=== PATIENT | male | born 1970 | race Caucasian/White ===

== ENCOUNTER 2020-02-06 18:25 | Observation (INO) ==
[2020-02-06] MEDS ORDERED: IOPAMIDOL 100 ML BOTTLE IV ONE (18:26)
[2020-02-06] MEDS ORDERED: ACETAMINOPHEN 325 MG TABLET PO ONE (19:00)
[2020-02-06] MEDS ORDERED: 0.9 % SODIUM CHLORIDE 1,000 ML IV ONE (19:00)
[2020-02-06] MEDS ORDERED: PANTOPRAZOLE 40 MG VIAL IV ONE (19:01)
--- NOTE | 2020-02-06 19:05 | Emergency Department Note ---
General Adult HPI - General Chief complaint: Back Pain/Injury Stated complaint: back, body, and head ache Time Seen by Provider: 02/06/20 18:32 Source: patient Mode of arrival: ambulatory Limitations: no limitations - History of Present Illness HPI Narrative: 50-year-old male patient presents emergency department with a considerable constellation of symptoms. Patient admits to a unproductive cough, mild sinus congestion, and right-sided epistaxis x2 weeks. Over the last 4 days he has developed considerable myalgias worse to his mid back extending up into his shoulders and neck. He also complains of considerable pain to bilateral knees. He admits to "cold feet and hands". He also admits to headache. Over the last 2 days he has been experiencing the passing of bright red blood per rectum. He denies producing any stools during this time. He admits to fever starting today. He denies considerable shortness of breath. He does mention that the pain to his back "takes my breath away". He denies retrosternal chest pain or palpitations. He denies considerable abdominal pain, nausea, vomiting, or diarrhea. He denies any hematuria or dysuria. He denies positive sick contacts at home with similar symptoms. Patient has a past history of back pain. He and the family deny history of hypertension, diabetes, or dyslipidemia. - Related Data Allergies Allergy/AdvReac Type Severity Reaction Status Date / Time hydrocodone Allergy Intermediate Anaphylaxis Verified 02/06/20 18:35 Review of Systems All systems ED: reviewed and negative except as stated. Past Medical History - Social History smoking status: Never smoker Physical Exam Limitations: no limitations General appearance: alert, anxious, grimacing, in distress, other (Well- developed, well-nourished 50-year-old male patient laying semi-recumbent on the emergency room gurney in obvious discomfort. He cries out in pain with any type of movement. He is in no acute respiratory distress) Head: atraumatic, normocephalic Eye: Present: normal appearance, PERRL, EOMI. Absent: scleral icterus, conjunctival injection ENT: Present: normal oropharynx, mucous membranes dry. Absent: nasal congestion (No area of nasal bleeding was identified.) Neck: Present: normal inspection, full ROM, trachea midline. Absent: tenderness, meningismus, lymphadenopathy Chest: Present: symmetric chest wall rise Respiratory: Present: normal lung sounds bilaterally. Absent: respiratory distress, wheezes, stridor, accessory muscle use, prolonged expiratory phase Cardiovascular: Present: normal rhythm, tachycardia. Absent: systolic murmur, diastolic murmur Abdominal: Present: soft, tenderness, guarding, rebound, hyperactive bowel sounds, psoas sign, tenderness at [place]. Absent: distention, rigidity, organomegaly, obturator sign, heel tap sign, ascites, mass, pulsatile mass Abdominal tenderness: Present: RLQ, severe. Absent: heel tap pain, right femur ext pain Rectal: Present: normal rectal tone, heme (+) stool, tenderness, normal prostate, other (Patient experienced moderate amount of bright red blood after JAIRO. No active hemorrhage was identified during exam. This resolved after wiping himself.). Absent: normal inspection, black stool, bloody stool, fecal impaction, mass Extremities: Present: normal inspection, full ROM, tenderness, normal capillary refill Back: Present: normal inspection, tenderness (Exquisite tenderness palpation noted to the thoracic spine at the T11-T12 and L1-L2), L-S tenderness, paraspinal tenderness. 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 Absent: normal gait (Patient needed considerable assistance to exit his be brought into the emergency department), reflexes normal Psychiatric: Present: agitated, anxious, other (Patient is very histrionic during exam.) Skin: Present: warm, dry. Absent: rash Course Course Narrative: Patient was brought into the emergency department and a history and physical exam was performed. Saline lock was established and laboratory studies were d rawn. Portable chest x-ray was ordered and reviewed. Abdominal CT scan with contrast was ordered and reviewed. Patient was given normal saline 1000 mL a bolus. He expresses considerable pain but due to his rectal bleeding no Toradol was given. He was given Dilaudid 0.5 mg IVP. Due to the GI bleed patient was given Protonix 80 mg IVP. Upon reevaluation patient is resting on the emergency room gurney. A review of his laboratory studies show the following: CBC within normal limits. CMP CO2 21, total bilirubin 1.3, all others normal limits. C- reactive protein 0.6. ESR 9. Lactic acid 1.2. Chest x-ray showing no acute pulmonary infiltrate. CT scan was read by the radiologist as a soft tissue mass to the right lower quadrant at the ileocecal junction. Radiologist did recommend colonoscopy and biopsy to confirm diagnosis. After reviewing all this data I discussed the findings with the patient and his family. At this time he is acutely ill, febrile, with myalgias, and a new found soft tissue mass in his abdomen. With this in mind I reached out to our general surgeon (Dr. Jerome) I discussed the case with him. At this time Dr. eJrome has requested that the patient be admitted to the hospital for inpatient care. He requested that I put holding orders in place and that he would follow the patient in the morning. With this in mind, holding orders were placed as requested. All further treatment decisions, modalities, and ultimate patient disposition will be carried out by Dr. Jerome. Vital Signs Temperature 100 F H 02/06/20 18:26 Pulse Rate 99 H 02/06/20 18:26 Respiratory Rate 22 02/06/20 18:26 Blood Pressure 126/90 02/06/20 18:26 Pulse Oximetry (%) 99 02/06/20 18:26 Temperature 99.4 F H 02/06/20 20:20 Pulse Rate 94 H 02/06/20 20:33 Respiratory Rate 13 02/06/20 20:33 Blood Pressure 106/73 02/06/20 20:31 Pulse Oximetry (%) 92 02/06/20 20:33 Medical Decision Making - Lab Data Lab results reviewed: Yes I reviewed the patient's lab results. Result diagrams: 02/06/20 19:12 02/06/20 19:12 Lab Results 02/06/20 02/06/20 02/06/20 Range/Units 19:12 19:12 19:12 WBC 8.2 (4.50-11.00) K/mcL RBC 5.05 (4.63-6.08) M/mcL Hgb 15.5 (13.7-17.5) g/dL Hct 45.2 (40.1-51.0) % POC Hct 46.0 (41.0-55.0) % MCV 89.5 (80.0-100.0) fL MCH 30.7 (26.0-34.0) pg MCHC 34.3 (31.0-36.0) g/dL RDW 12.3 (11.5-14.5) % Plt Count 244 (140-440) K/mcL MPV 10.0 (7.4-10.4) fL Gran % 82.0 H (38.0-78.0) % Lymph % (Auto) 5.6 L (15.5-49.0) % [place] % (Auto) 11.8 (1.0-12.0) % Eos % (Auto) 0.2 (0.0-7.0) % Baso % (Auto) 0.4 (0.0-2.0) % Gran # 6.68 (1.80-8.00) K/mcL Lymph # (Auto) 0.46 L (1.50-4.80) K/mcL [place] # (Auto) 0.96 H (0.10-0.90) K/mcL Eos # (Auto) 0.02 (0.00-0.70) K/mcL Baso # (Auto) 0.03 (0.00-0.30) K/mcL ESR 9 (0-15) mm/hr VBG Lactic Acid 1.2 (0.5-2.0) mmol/L POC Sodium 136 (133-145) mmol/L Sodium 135 (133-145) mmol/L POC Potassium 3.4 (3.3-5.1) mmol/L Potassium 3.5 (3.3-5.1) mmol/L POC Chloride 106 (96-108) mmol/L Chloride 102 (96-108) mmol/L Carbon Dioxide 21 L (22-30) mmol/L POC Total CO2 21 L (22-30) mmol/L Anion Gap 12.0 (8-16) POC BUN 11 (6-20) mg/dl BUN 11 (6-20) mg/dl Creatinine 0.9 (0.7-1.2) mg/dl POC Creatinine 1.0 (0.7-1.2) mg/dl GFR Calculation 99 Glucose 105 (70-105) mg/dL POC Glucose 105 (70-105) mg/dL Calcium 8.9 (8.6-10.4) mg/dl POC WB Ioniz Calcium 1.00 L (1.16-1.32) mmol/L Total Bilirubin 1.3 H (0.0-1.0) mg/dL AST 24 (0-37) U/l ALT 21 (0-40) U/l Alkaline Phosphatase 57 (39-117) U/L C-Reactive Protein 0.6 (0.0-0.8) mg/dl Total Protein 7.5 (5.9-8.4) gm/dL Albumin 4.4 (3.2-5.2) gm/dL Globulin 3.1 (2.2-3.7) gm/dL Albumin/Globulin Ratio 1.4 (1.0-2.3) - Radiology Data Radiology results reviewed: Yes I reviewed the patient's radiology results. Disposition Pt seen by SERVICE LOSS CONTROL CONSULTANT/PA only: Yes Clinical Impression: Abdominal mass, RLQ (right lower quadrant), Febrile illness, acute, Bleeding per rectum Disposition: Xfer As Outpt/Obs ([facility]) Condition: Fair Additional Instructions: Patient is going to be admitted to the hospital under the care of the general surgeon (Dr. Jerome). All further treatment decisions, modalities, and ultimate patient disposition will be carried out by Dr. Jerome. Referrals: Steven Spaulding MD [Primary Care Provider] -
[2020-02-06 19:24] LABS: POC Blood Urea Nitrogen 11 mg/dl (6-20); POC CO2 21 mmol/L (22-30); POC Chloride 106 mmol/L (96-108); POC Glucose, Random 105 mg/dL (70-105); POC Potassium 3.4 mmol/L (3.3-5.1); POC Sodium 136 mmol/L (133-145)
[2020-02-06] MEDS: HYDROmorphone 2 MG/ML VIAL IV PRN ×3 (19:34→21:24)
[2020-02-06 19:41] LABS: Basophils # (Auto) 0.03 K/mcL (0.00-0.30); Basophils % (Auto) 0.4 % (0.0-2.0); Eosinophils # (Auto) 0.02 K/mcL (0.00-0.70); Eosinophils % (Auto) 0.2 % (0.0-7.0); Hematocrit 45.2 % (40.1-51.0); Hemoglobin 15.5 g/dL (13.7-17.5); Lymphocytes # (Auto) 0.46 K/mcL (1.50-4.80); Lymphocytes % (Auto) 5.6 % (15.5-49.0); Mean Cell Volume 89.5 fL (80.0-100.0); Mean Corpuscular HGB Conc 34.3 g/dL (31.0-36.0); Monocytes # (Auto) 0.96 K/mcL (0.10-0.90); Monocytes % (Auto) 11.8 % (1.0-12.0); Platelet Count 244 K/mcL (140-440); RBC 5.05 M/mcL (4.63-6.08); Red Cell Distribution Width 12.3 % (11.5-14.5); WBC 8.2 K/mcL (4.50-11.00)
[2020-02-06 20:05] LABS: ALT/SGPT 21 U/l (0-40); AST/SGOT 24 U/l (0-37); Albumin 4.4 gm/dL (3.2-5.2); Albumin/Globulin Ratio 1.4 (1.0-2.3); Alkaline Phosphatase 57 U/L (39-117); Bilirubin,Total 1.3 mg/dL (0.0-1.0); Blood Urea Nitrogen 11 mg/dl (6-20); C-Reactive Protein 0.6 mg/dl (0.0-0.8); Calcium 8.9 mg/dl (8.6-10.4); Carbon Dioxide 21 mmol/L (22-30); Chloride 102 mmol/L (96-108); Globulin 3.1 gm/dL (2.2-3.7); Glomerular Filtration Rate 99; Glucose 105 mg/dL (70-105)
[2020-02-06 20:34] LABS: Erythrocyte Sedimentation Rate 9 mm/hr (0-15)
[2020-02-06] MEDS ORDERED: HYDROmorphone 2 MG/ML VIAL IV PRN (22:02)
[2020-02-06] MEDS ORDERED: ONDANSETRON 4 MG/2 ML VIAL IV PRN (22:02)
[2020-02-06] MEDS: 0.9 % SODIUM CHLORIDE 1,000 ML IV SCH (22:27)
[2020-02-07] MEDS: HYDROmorphone 2 MG/ML VIAL IV PRN (00:27)
[2020-02-07] MEDS ORDERED: ACETAMINOPHEN 1,000 MG/100 ML BOTTLE IV ONE (01:36)
[2020-02-07 06:22] LABS: Basophils # (Auto) 0.03 K/mcL (0.00-0.30); Basophils % (Auto) 0.4 % (0.0-2.0); Eosinophils # (Auto) 0.02 K/mcL (0.00-0.70); Eosinophils % (Auto) 0.3 % (0.0-7.0); Granulocytes % (Auto) 81.1 % (38.0-78.0); Hematocrit 41.5 % (40.1-51.0); Hemoglobin 13.6 g/dL (13.7-17.5); Lymphocytes # (Auto) 0.46 K/mcL (1.50-4.80); Lymphocytes % (Auto) 6.6 % (15.5-49.0); Mean Cell Volume 92.8 fL (80.0-100.0); Mean Corpuscular HGB Conc 32.8 g/dL (31.0-36.0); Monocytes # (Auto) 0.81 K/mcL (0.10-0.90); Monocytes % (Auto) 11.6 % (1.0-12.0); Platelet Count 200 K/mcL (140-440); RBC 4.47 M/mcL (4.63-6.08); Red Cell Distribution Width 12.5 % (11.5-14.5)
[2020-02-07] MEDS: 0.9 % SODIUM CHLORIDE 10 ML SYRINGE IV SCH ×3 (06:22→21:01)
[2020-02-07 06:40] LABS: ALT/SGPT 17 U/l (0-40); AST/SGOT 19 U/l (0-37); Albumin 3.7 gm/dL (3.2-5.2); Albumin/Globulin Ratio 1.4 (1.0-2.3); Alkaline Phosphatase 50 U/L (39-117); Bilirubin,Direct 0.2 mg/dL (0.0-0.3); Bilirubin,Total 1.3 mg/dL (0.0-1.0); Blood Urea Nitrogen 8 mg/dl (6-20); Carbon Dioxide 26 mmol/L (22-30); Chloride 103 mmol/L (96-108); Globulin 2.6 gm/dL (2.2-3.7); Glomerular Filtration Rate 99; Glucose 125 mg/dL (70-105); Lactate Dehydrogenase 174 U/L (94-250); Phosphorous 2.7 mg/dL (2.7-4.5); Triglycerides 110 mg/dl (<150); Uric Acid 4.2 mg/dL (2.5-8.0)
[2020-02-07] MEDS: 0.9 % SODIUM CHLORIDE 1,000 ML IV SCH ×3 (08:06→23:27)
--- NOTE | 2020-02-07 09:07 | XRay Report ---
HISTORY: Fever, cough, myalgias FINDINGS: The lungs are clear and well expanded. The heart size, pulmonary vascular, mediastinum, michelle, pleura and bones are normal. There is a mild dextroscoliotic curvature in the lower thoracic spine. IMPRESSION: Normal exam Interpreted and Authenticated by: Doc Cramer 02/07/20
--- NOTE | 2020-02-07 09:17 | Cat Scan Report ---
History: Right lower quadrant pain, blood in stool, fever TECHNIQUE: The patient was imaged following intravenous and no oral contrast from the diaphragm to the symphysis pubis. Sagittal and coronal reformats were created. The radiation exposure was limited using dose reduction technology. FINDINGS: The lung bases are clear and there is no pleural effusion. The liver and spleen are normal in size and homogeneous. The pancreas is normal without evidence of pancreatitis. The gallbladder and bile ducts are normal. The adrenals are normal and symmetric. A 9 mm cortical cyst is present posteriorly in the middle third of the right kidney. There is no renal mass, calculus, hydronephrosis or evidence of pyelonephritis. The ureters are decompressed. Urinary bladder is unopacified but appears normal. The aorta and inferior vena cava are normal. No abscess, adenopathy or ascites are present within the abdomen or pelvis. Within the lumen of the cecum adjacent to the ileocecal valve there is a heterogeneous solid mass measuring 3.0 x 3.7 x 5.1 cm. This contains a couple small bubbles of air. The adjacent terminal ileum is normal without evidence of inflammation or an intussusception. Multiple fluid-filled loops of small bowel are present within the abdomen and pelvis, which measure up to 2.9 cm in diameter. The wall of the cecum does not appear to be abnormally thickened and there is a moderate amount stool in the colon. Segments of the transverse and descending colon are decompressed and the aranda are upper limits of normal thickness and appear to have some fatty infiltration within the wall. This finding may be seen with chronic inflammatory bowel disease. There are a few noninflamed diverticula in the sigmoid colon. There is no acute diverticulitis. IMPRESSION: Mass in the cecum adjacent to the ileocecal valve. This could be a stool ball, but it has a different composition than the remainder the stool seen throughout the colon. Neoplasm should be considered. This could be further evaluated by colonoscopy. Borderline dilatation of small intestine. This could be due to early obstruction due to the mass at the ileocecal valve. Mild fatty infiltration and borderline thickening of the wall of the transverse and descending colon. This could be normal collapsed mucosal folds or secondary findings from chronic low-grade inflammatory bowel disease Damon Dodson was called with results Interpreted and Authenticated by: Doc Cramer 02/07/20
[2020-02-07] MEDS ORDERED: PEG 3350/NA SULF,BICARB,CL/KCL 4,000 ML ORAL.SOL PO ONE (14:06)
--- NOTE | 2020-02-07 15:56 | General Surg History&Physical ---
History of Present Illness Patient information: Note initiated : 02/07/20 at 3:54 pm Service Date, if different from initiated Date: [] Patient: Bruce Hickey 50 y/o M admitted on 02/07/20 for back, body, and head ache. Chief Complaint: [] HPI: Mr. Hickey is a 50 year old M admitted for evaluation of bright red rectal b leeding with a cecal mass. The patient has a 2 week history of diffuse aches, joints and back. 2 days ago he developed severe low back pain and abdominal pain. He had bright red rectal bleeding 4. He is seen in the emergency room and admitted. CT of the abdomen shows a 5.1 x 3.7 x 3 cm right cecal mass. Hemoglobin has decreased from 15.5 on admission to the ER to 13.6 this morning. He's not had bloody bowel movement since admission. His lactic acid was 1.2. Review of Systems All systems PM: reviewed and no additional remarkable complaints except as stated - EENT Nose, mouth and throat: epistaxis (episodic right-sided epistaxis) - Musculoskeletal other (right knee pain) Past History Past medical history: No chronic medical illness Past surgical history: Right knee ACL repair and right knee arthroscopy. Left inguinal hernia repair age 50 Past family history: Denies tobacco use. Drinks beer daily. Denies drug use. Employment Past social history: Mother alive age 73 with hypertension Father age 81 due to myocardial infarction. Brother age 51 with hypertension Medications and Allergies Home Medications Medication Instructions Recorded Confirmed Type No Known Home Meds 02/07/20 02/07/20 History Allergies Allergy/AdvReac Type Severity Reaction Status Date / Time hydrocodone Allergy Severe Anaphylaxis Verified 02/07/20 09:40 Exam Temp Pulse Resp BP Pulse Ox 98.1 F 66 16 114/77 97 02/07/20 12:00 02/07/20 12:00 02/07/20 12:00 02/07/20 12:00 02/07/20 12:00 - General physical appearance well developed, well nourished, no distress - Eyes PERRL, normal ocular movement - ENT normal pinna, normal nares, normal mucosa, no hearing loss, no congestion - Head Head exam IM: Present: atraumatic, normocephalic - Neck no masses, no bruits, trachea midline, no lymphadenopathy, no venous distension - Cardiovascular Cardiovascular exam IM: Present: normal rate and rhythm - Respiratory normal expansion, normal respiratory effort, clear to percussion, clear to auscultation - Abdomen Abdomen: Present: soft, tender (mild tenderness with guarding right lower quadrant), bowel sounds, guarding Hernia: Present: none - Genitourinary Present: normal penis with no external lesions - Rectum Rectum: Present: normal sphincter tone, no hemorrhoids, no tenderness, no masses, no bleeding - Integumentary Present: no rash, no growths, no abnormal pigmentation - Neurologic Present: normal coordination, normal sensation - Musculoskeletal Present: normal gait, normal posture - Psychiatric Present: oriented to time, oriented to person, oriented to place, speech is normal, memory intact Assessment and Plan (1) Rectal bleeding GoLYTELY 4 L today. Soapsuds enema in the morning. Colonoscopy tomorrow Status: Acute (2) Mass of cecum CEA. Colonoscopy. Diagnosis Status: Acute
[2020-02-07 17:17] LABS: Prothrombin Time 13.2 sec (11.9-14.5)
[2020-02-07 17:39] LABS: Carcinoembryonic Antigen 0.6 ng/mL (0.0-3.4)
[2020-02-07] MEDS ORDERED: ACETAMINOPHEN 1,000 MG/100 ML BOTTLE IV PRN (20:18)
[2020-02-07] MEDS: ACETAMINOPHEN 325 MG TABLET PO PRN (21:01)
[2020-02-08] MEDS: ACETAMINOPHEN 325 MG TABLET PO PRN (05:09)
[2020-02-08] MEDS: 0.9 % SODIUM CHLORIDE 10 ML SYRINGE IV SCH ×2 (06:16→16:21)
[2020-02-08] MEDS: 0.9 % SODIUM CHLORIDE 1,000 ML IV SCH ×2 (07:50→16:20)
[2020-02-08 08:10] LABS: ALT/SGPT 20 U/l (0-40); AST/SGOT 23 U/l (0-37); Albumin 3.5 gm/dL (3.2-5.2); Albumin/Globulin Ratio 1.5 (1.0-2.3); Alkaline Phosphatase 46 U/L (39-117); Blood Urea Nitrogen 6 mg/dl (6-20); Calcium 7.9 mg/dl (8.6-10.4); Carbon Dioxide 25 mmol/L (22-30); Chloride 102 mmol/L (96-108); Globulin 2.4 gm/dL (2.2-3.7); Glomerular Filtration Rate 99; Glucose 87 mg/dL (70-105); Lactate Dehydrogenase 183 U/L (94-250); Triglycerides 88 mg/dl (<150); Uric Acid 3.9 mg/dL (2.5-8.0)
[2020-02-08 08:17] LABS: Bilirubin,Direct < 0.2 mg/dL (0.0-0.3); Phosphorous 2.3 mg/dL (2.7-4.5)
[2020-02-08 08:58] LABS: Basophils # (Auto) 0.03 K/mcL (0.00-0.30); Basophils % (Auto) 0.7 % (0.0-2.0); Eosinophils # (Auto) 0.05 K/mcL (0.00-0.70); Eosinophils % (Auto) 1.2 % (0.0-7.0); Granulocytes % (Auto) 61.7 % (38.0-78.0); Hematocrit 39.9 % (40.1-51.0); Lymphocytes # (Auto) 0.74 K/mcL (1.50-4.80); Lymphocytes % (Auto) 17.7 % (15.5-49.0); Mean Cell Volume 93.2 fL (80.0-100.0); Mean Corpuscular HGB Conc 32.6 g/dL (31.0-36.0); Mean Platelet Volume 10.4 fL (7.4-10.4); Monocytes # (Auto) 0.78 K/mcL (0.10-0.90); Monocytes % (Auto) 18.7 % (1.0-12.0); Platelet Count 192 K/mcL (140-440); RBC 4.28 M/mcL (4.63-6.08); Red Cell Distribution Width 12.6 % (11.5-14.5); WBC 4.2 K/mcL (4.50-11.00)
[2020-02-08] MEDS ORDERED: GLYCOPYRROLATE 0.2 MG/ML VIAL IV ONE (14:39)
[2020-02-08] MEDS ORDERED: ONDANSETRON 4 MG/2 ML VIAL IV ONE (14:39)
[2020-02-08] MEDS ORDERED: PROPOFOL 200 MG/20 ML VIAL IV ONE (14:39)
[2020-02-08] MEDS ORDERED: MIDAZOLAM 2 MG/2 ML VIAL IV ONE (14:39)
[2020-02-08] MEDS ORDERED: LIDOCAINE HCL/PF 100 MG/5 ML SYRINGE IV ONE (14:39)
--- NOTE | 2020-02-08 15:22 | Brief Operative Note ---
Date of procedure: 02/08/20 Pre-op diagnosis: rectal bleeding; cecal mass Post-op diagnosis: other (sigmoid diverticulosis; no cecal mass seen) Procedure: colonoscopy to cecum Grafts/Implants: No Anesthesia: none (general) Findings: cecum and ascending colon are totally normal few diverticulae in sigmoid colon no hemorrhoids or rectal mass Complications: none Surgeon: Janelle Jerome Specimens Removed/Pathology: none sent Condition: stable Disposition: floor
[2020-02-08] MEDS ORDERED: ACETAMINOPHEN 325 MG TABLET PO PRN (15:28)
[2020-02-08] MEDS ORDERED: HYDROmorphone 2 MG/ML VIAL IV PRN ×2 (15:28)
[2020-02-08] MEDS ORDERED: ONDANSETRON 4 MG/2 ML VIAL IV PRN (15:28)
[2020-02-08] MEDS ORDERED: ACETAMINOPHEN 1,000 MG/100 ML BOTTLE IV PRN (15:28)
--- NOTE | 2020-02-08 17:01 | Discharge Summary ---
Providers - Providers Patient information: Note initiated : 02/08/20 at 5:01 pm Service Date, if different from initiated Date: [] Patient: Bruce Hickey 50 y/o M admitted on 02/07/20 for back, body, and head ache. Chief Complaint: [] Date of admission: 02/06/20 Discharge date: 02/08/20 Attending physician: Janelle Jerome Hospitalization Hospital Course: 50-year-old male admitted for evaluation of bright red rectal bleeding with questionable cecal mass. He presented with a 2 week history of diffuse aches, joint pain and back pain. He developed severe low back pain 2 days prior to admission and developed abdominal pain. He states that he had rectal bleeding 4. He was seen in the emergency room and admitted. CT of the abdomen revealed a 5.1 x 3.7 x 3 cm cecal mass. Hemoglobin decreased from 15.5 on admission to 13.6. The patient did not have rectal bleeding while hospitalized. Lactic acid was 1.2. Patient was treated symptomatically for discomfort and underwent a bowel prep. Earlier today. Colonoscopy was done to the cecum. The cecum and ascending colon were totally normal. There was no mass effect. He had a few diverticula in the sigmoid colon. There were no hemorrhoids or rectal mass. Patient is asymptomatic at this time and is stable for discharge home Discharge diagnosis: bright red rectal bleeding Secondary discharge diagnosis: Radiographic abnormality of colon without endoscopic findings Reason for admission: abdominal pain and rectal bleeding with suspected cecal mass Procedures: Colonoscopy Pertinent studies/significant findings: CT of abdomen and pelvis with contrast Complications: None Exam Temp Pulse Resp BP Pulse Ox 98.6 F 64 18 109/80 97 02/08/20 14:45 02/08/20 14:45 02/08/20 14:45 02/08/20 14:45 02/08/20 14:45 - General physical appearance well developed, well nourished, no distress - Eyes PERRL, normal ocular movement - ENT normal pinna, normal nares, normal mucosa, no hearing loss, no congestion - Head Head exam IM: Present: atraumatic, normocephalic - Neck no masses, no bruits, trachea midline, no lymphadenopathy, no venous distension - Cardiovascular Cardiovascular exam IM: Present: normal rate and rhythm - Respiratory normal expansion, normal respiratory effort, clear to percussion, clear to auscultation - Abdomen Abdomen: Present: soft, non tender, bowel sounds Hernia: Present: none - Genitourinary Present: normal penis with no external lesions - Integumentary Present: no rash, no growths, no abnormal pigmentation - Neurologic Present: normal coordination, normal sensation - Musculoskeletal Present: normal gait, normal posture - Psychiatric Present: oriented to time, oriented to person, oriented to place, speech is normal, memory intact Discharge Plan - Patient/Caregiver Discharge Instructions Activity: increase activity as tolerated Diet: Regular Diet Additional Instructions: Patient is going to be admitted to the hospital under the care of the general surgeon (Dr. Jerome). All further treatment decisions, modalities, and ultimate patient disposition will be carried out by Dr. Jerome. - Follow up Plan Follow up with: Steven Spaulding MD [Primary Care Provider] - Disposition: Home, Self-Care Prognosis: Good Rehab Potential: Good I certify that the patient requires SNF services.: No Overall status at discharge: patient is back to baseline Pending Studies Resuscitation Status Full Code Diet Regular Diet Start SatFeb 07 152 Acetaminophen (Ofirmev) 1,000 mg in 100 mls @ 200 mls/hr IV Q6HP PRN; Protocol PRN Reason: PAIN/FEVER > 101 Last Admin: 02/08/20 16:04 Dose: 200 mls/hr Documented by: RUSSEL Shift Summary 02/08/20 05:26 Shift Summary by Juan Carlos Adamson Pt has rested well tonight. HE finished his gal of [place] PUD - last BM was mostly clear yellow w/ only sm amt sediment. He is voiding per urinal QS. VS - WNL on R.A.. Pt is up AMB in Rm & on unit (I). Back pain treated with PO tylenol 650mg x2 doses - last @ 0510. He has been NPO since 0000, with the exception of a few sips H2O for am Tylenol. NS infusing to his RT F/A @ 125ml/hr. HE is A&Ox4, calm, pleasant, & cooperative. Sched for colonoscopy later today. Initialized on 02/08/20 05:26 - END OF NOTE
[2020-02-08] MEDS ORDERED: 0.9 % SODIUM CHLORIDE 10 ML SYRINGE IV SCH (22:00)
--- NOTE | 2020-02-09 07:34 | Operative Note ---
DATE OF OPERATION: 02/08/2020 PREOPERATIVE DIAGNOSIS: Rectal bleeding, cecal mass. POSTOPERATIVE DIAGNOSIS: Sigmoid diverticulosis. No cecal mass noted and no rectal bleeding noted. PROCEDURE: Colonoscopy to cecum. SURGEON: Janelle Jerome M.D. FINDINGS: Cecum and ascending colon are totally normal. There are a few diverticula in the sigmoid colon. No hemorrhoids, no rectal mass, no evidence of old blood in the colon. DESCRIPTION OF PROCEDURE: Under general anesthesia, the patient turned to the left lateral decubitus position. A time-out procedure was carried out as per protocol. Digital examination was unremarkable. There was no blood on the examining finger. Scope was introduced and maneuvered to the cecum without difficulty. No old blood was noted. The cecum was maximally dilated. It was identified by the opening of the appendix, ileocecal valve, and confluence of the taenia. The cecum was entirely normal. Ileocecal valve was normal. Ascending colon revealed no abnormalities. There were no vascular lesions, telangiectasias, AV malformations or other lesions in the right colon. The transverse colon was normal. The descending colon revealed no abnormality. There were three openings of diverticula in the mid sigmoid colon but no other mucosal lesions. The distal sigmoid and rectum were normal. Retroflexed view of the rectum on examination did not reveal any abnormality. No hemorrhoids were noted. There were no masses noted. The air was suctioned from the colon and the scope was removed. The patient tolerated the procedure well. He was awakened and transferred to the postanesthetic care unit in stable, satisfactory condition. LCS:rolo Job ID: [id number] Doc ID: [id number] Janelle Jerome M.D.
== END 2020-02-08 18:50 | disposition home or self-care (01) ==
LOC: ED 18:25 → MEDSUR 18:25
PROVIDERS: ADMIT Family Medicine Adult Medicine; ATTEND Family Medicine Adult Medicine